=== PATIENT | male | born 1990 | race Caucasian/White ===

== ENCOUNTER 2018-01-25 14:27 | Emergency (ER) | payer OTHER ==
--- NOTE | 2018-01-25 14:43 | EDM.PDOC ---
ED HPI GENERAL MEDICAL PROBLEM - General Chief Complaint: Back Pain or Injury Stated Complaint: BACK PAIN Time Seen by Provider: 01/25/18 14:28 Source of Information: Reports: Patient History Limitations: Reports: No Limitations - History of Present Illness INITIAL COMMENTS - FREE TEXT/NARRATIVE: HISTORY AND PHYSICAL: History of present illness: Patient is a 27-year-old male who presents to the emergency room with complaints of lumbar back pain that radiates into his right hip. He states approximately 2 weeks ago he slipped and fell on the ice landing on his mid back. He denies hitting his head or any loss of consciousness at that time. After the fall his employer had consultative and employment physician (over the phone) who gave him some supportive care measures to follow at home. Today he was reaching and pulled some equipment out of his truck bed and had low back pain that radiates into his right hip. Pain is the same area that hurt from the fall. He denies any numbness or tingling to the affected extremity. No urinary or fecal incontinence. Review of systems: As per history of present illness and below otherwise all systems reviewed and negative. Past medical history: As per history of present illness and as reviewed below otherwise noncontributory. Surgical history: As per history of present illness and as reviewed below otherwise noncontributory. Social history: No reported history of drug or alcohol abuse. Family history: As per history of present illness and as reviewed below otherwise noncontributory. Physical exam: General: Well-developed and well-nourished 27 she'll female. Alert and oriented. Nontoxic appearing and in no acute distress. HEENT: Atraumatic, normocephalic, pupils reactive, negative for conjunctival pallor or scleral icterus, mucous membranes moist, throat clear, neck supple, nontender, trachea midline. Lungs: Clear to auscultation, breath sounds equal bilaterally, chest nontender. Heart: S1S2, regular rate and rhythm Abdomen: Soft, nondistended, nontender. Negative for masses or hepatosplenomegaly. Negative for costovertebral tenderness. Pelvis: Stable nontender. Genitourinary: Deferred. Rectal: Deferred. Extremities: Moves all extremities per self without difficulty or deficits. Full range of motion. No pain or tenderness with palpation of upper and lower extremities bilaterally. negative for cords or calf pain. Neurovascular unremarkable. C-spine/Back: Pinpoint vertebral tenderness upon palpation. No crepitus, step- offs, or obvious deformities. Patient is fully ambulatory with a steady gait. No urinary or fecal incontinence. Does have musculoskeletal pain to the lumbar back going into the right crest of posterior hip/glute. Neuro: Awake, alert, oriented. Cranial nerves II through XII unremarkable. Cerebellum unremarkable. Motor and sensory unremarkable throughout. Exam nonfocal. 3 readings show no fractures or dislocations. We'll treat the patient with Flexeril and Cataflam. Education has been done with the patient. He voices understanding and is agreeable to plan of care. He denies any questions at this time Diagnostics: Lumbar xray, (R) Hip/Pelvis Xray Therapeutics: Toradol Impression: Lumbar back pain Muscle strain, back Plan: 1. Please take medications as directed. Flexeril may cause drowsiness do not take it will driving her needing to be functioning at work. Tylenol as needed for pain. 2. Gentle heat and stretching to the area. 3. Follow up with your primary caregiver in the next 1-2 days. Return to the ED as needed and as discussed. Definitive disposition and diagnosis as appropriate pending reevaluation and review of above. Onset: Today Lower Back Pain Score (Numeric/FACES): 3 - Related Data Allergies Allergy/AdvReac Type Severity Reaction Status Date / Time No Known Allergies Allergy Verified 01/25/18 14:42 Home Meds: Home Meds . [No Known Home Meds] 01/25/18 [History] ED ROS GENERAL - Review of Systems Review Of Systems: ROS reveals no pertinent complaints other than HPI. ED EXAM,LOWER BACK PAIN/INJURY - Physical Exam Exam: See Below (See dictation) Course - Vital Signs Last Recorded V/S: Last Vital Signs Temp 97.8 F 01/25/18 14:38 Pulse 96 01/25/18 14:38 Resp 18 01/25/18 14:38 BP 134/94 H 01/25/18 14:38 Pulse Ox 96 01/25/18 14:38 - Orders/Labs/Meds Orders: Active Orders 24 hr Category Date Time Status Hip Min 2V or 3V w Pelvis Rt [CR] Stat Exams 01/25/18 14:42 Taken Lumbar Spine 2 or 3V [CR] Stat Exams 03/17/18 14:41 Taken Meds: Medications Discontinued Medications Generic Name Dose Route Start Last Admin Trade Name Jonathan PRN Reason Stop Dose Admin Ketorolac Tromethamine 60 mg 01/25/18 14:51 Toradol IM 01/25/18 14:52 ONETIME ONE Departure - Departure Time of Disposition: 15:39 Disposition: Home, Self-Care 01 Clinical Impression: Muscle strain, Lumbar back pain - Discharge Information Instructions: Muscle Strain, [id number], Back Pain, Adult, [id number] Referrals: PCP,None [Primary Care Provider] - Forms: ED Department Discharge Additional Instructions: My general discharge The following information is given to patients seen in the emergency department who are being discharged to home. This information is to outline your options for follow-up care. We provide all patients seen in our emergency department with a follow-up referral. The need for follow-up, as well as the timing and circumstances, are variable depending upon the specifics of your emergency department visit. If you don't have a primary care physician on staff, we will provide you with a referral. We always advise you to contact your personal physician following an emergency department visit to inform them of the circumstance of the visit and for follow-up with them and/or the need for any referrals to a consulting specialist. The emergency department will also refer you to a specialist when appropriate. This referral assures that you have the opportunity for follow-up care with a specialist. All of these measure are taken in an effort to provide you with optimal care, which includes your follow-up. Under all circumstances we always encourage you to contact your private physician who remains a resource for coordinating your care. When calling for follow-up care, please make the office aware that this follow-up is from your recent emergency room visit. If for any reason you are refused follow-up, please contact the [facility] Emergency Department at and asked to speak to the emergency department charge nurse. [facility] [address] [place] [phone] 1. Please take medications as directed. Flexeril may cause drowsiness do not take it will driving her needing to be functioning at work. Tylenol as needed for pain. 2. Gentle heat and stretching to the area. 3. Follow up with your primary caregiver in the next 1-2 days. Return to the ED as needed and as discussed. - My Orders Last 24 Hours: My Active Orders 01/25/18 14:41 Lumbar Spine 2 or 3V [CR] Stat 01/25/18 14:42 Hip Min 2V or 3V w Pelvis Rt [CR] Stat - Assessment/Plan Last 24 Hours: My Active Orders 01/25/18 14:41 Lumbar Spine 2 or 3V [CR] Stat 01/25/18 14:42 Hip Min 2V or 3V w Pelvis Rt [CR] Stat
[2018-01-25] MEDS ORDERED: Ketorolac 60 MG/2 ML SDV IM ONE (14:51)
--- NOTE | 2018-01-27 16:01 | CR ---
EXAM DATE: 01/25/18 PATIENT'S AGE: 27 Patient: SANJAY SMITH Facility: [place], [place] Site . Site : 1990 Study: XRay Hip Right [id number]/17/2018 3:28:16 PM Ordering Physician: Doctor Bright Final Report: INDICATION: Patient fell 2 weeks ago; pain right hip. TECHNIQUE: Three-view study pelvis and right hip. FINDINGS: No evidence of fracture or dislocation. No bone or soft tissue abnormalities. IMPRESSION: Negative radiographic examination of the pelvis and right hip. Dictated by Meli Pavon MD @ Jan 25 2018 3:33PM (Electronic Signature) Report Signed by Proxy. YULY
--- NOTE | 2018-01-27 16:02 | CR ---
EXAM DATE: 01/25/18 PATIENT'S AGE: 27 Patient: SANJAY SMITH Facility: [place], [place] Site . Site : 1990 Study: XRay Spine Lumbar [id number]/17/2018 3:32:53 PM Ordering Physician: Doctor Bright Final Report: INDICATION: Patient fell 2 weeks ago; low back pain. TECHNIQUE: Three-view study lumbosacral spine. FINDINGS: No evidence of fracture or dislocation. No bone or soft tissue abnormalities. No evidence of spondylolysis or spondylolisthesis. IMPRESSION: Negative radiographic examination of the lumbar sacral spine. Dictated by Meli Pavon MD @ Jan 25 2018 3:36PM (Electronic Signature) Report Signed by Proxy. YULY
== END 2018-01-25 15:51 | disposition home or self-care (01) ==
LOC: MW.ED 14:27
DX: S39.012A Strain of muscle, fascia and tendon of lower back, initial encounter (principal); W00.0XXA Fall on same level due to ice and snow, initial encounter
CPT/HCPCS: 72100; 73502; 96372; 99283; J1885; 99284